=== PATIENT | male | born 1975 | race Caucasian/White ===

== ENCOUNTER 2023-09-08 17:07 | Emergency (ER) | payer OTHER ==
--- NOTE | 2023-09-08 17:10 | ED ---
General Adult HPI - General Source: RN notes reviewed <Griselda Barrios - Last Filed: 09/08/23 17:09> - General Source: patient, RN notes reviewed, old records reviewed <Jt Reid - Last Filed: 09/09/23 00:03> - General Stated complaint: Chest congestion,sob,syncope Time Seen by Provider: 09/08/23 17:09 - History of Present Illness Initial comments: 47-year-old male presents to the emergency department with a chief complaint of cough. Patient also complains of hoarse voice, cough, congestion. Denies known fevers. reports history of pneumonia. (Griselda Barrios) Patient is a 47-year-old male who was originally evaluated as a quick note. Presents complaining of cough, congestion, sore throat. Also is complaining of chronic left shoulder pain as well as right knee pain. 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 Denies any significant past medical history. Symptoms have been ongoing for a few days in terms of upper respiratory illness. Workup was started in triage. He denies any nausea, vomiting, diarrhea, abdominal pain, chest pain. Denies any known sick contacts. He is concerned he may have pneumonia which is why presents. Left shoulder pain is chronic and is worse with movement. No obvious trauma. Patient's right knee pain started yesterday before while at work. Is a safe and vault service mechanic and has pain over the anterior aspect of the right knee but no obvious trauma. Has normal range of motion but pain with movement. Presents for further evaluation at this time. (Jt Reid) - Related Data Home Medications Medication Instructions Recorded Confirmed Famotidine 40 mg PO HS 09/08/23 09/08/23 Pantoprazole [Protonix] 40 mg PO HS 09/08/23 09/08/23 Allergies Allergy/AdvReac Type Severity Reaction Status Date / Time No Known Allergies Allergy Verified 09/08/23 22:15 Review of Systems ROS Other: All systems not noted in ROS Statement are negative. <Griselda Barrios - Last Filed: 09/08/23 17:09> ROS Other: All systems not noted in ROS Statement are negative. <Jt Reid - Last Filed: 09/09/23 00:03> ROS Statement: Those systems with pertinent positive or pertinent negative responses have been documented in the HPI. Review of Systems: CONST: Denies fever EYES: Denies blurry vision ENT: Endorses nasal congestion, sore throat C/V: Denies Chest pain RESP: Denies shortness of breath GI: Denies abdominal pain : Denies dysuria SKIN: Denies rash. MSK: Endorses left shoulder pain, right knee pain NEURO: Denies headache (Jt Reid) Past Medical History Past Medical History: No Reported History History of Any Multi-Drug Resistant Organisms: None Reported Past Surgical History: Hernia Repair, Orthopedic Surgery Past Psychological History: ADD/ADHD, Anxiety, Depression Smoking Status: Former smoker Past Alcohol Use History: Daily Past Drug Use History: Marijuana <Griselda Barrios - Last Filed: 09/08/23 17:09> General Exam <Griselda Barrios - Last Filed: 09/08/23 17:09> <Jt Reid - Last Filed: 09/09/23 00:03> - General Exam Comments Initial Comments: Visual Physical Exam Vital signs reviewed General: Well-appearing, nontoxic, no acute distress. Head: Normocephalic, atraumatic Eyes: PERRLA, EOMI ENT: Airway patent Chest: Nonlabored breathing Skin: No visual rash, normal skin tone Neuro: Alert and oriented 3 Musculoskeletal: No gross abnormalities (Griselda Barrios) General: Appears in no acute distress. HEAD: Normal with no signs of head trauma. EYES: PERRLA, EOMI, conjunctiva normal, no discharge. ENT: Hearing grossly intact. Rhinorrhea. Posterior oropharynx is erythematous. No obvious exudates. No stridor. RESPIRATORY: Clear breath sounds bilaterally. No wheezes, rales, or rhonchi. No hypoxia. No rhonchi. C/V: Regular rate and rhythm. S1 and S2 auscultated, no edema, peripheral pulses 2+ and intact throughout ABD: Abd is soft, nontender, nondistended EXT: Normal range of motion, no obvious deformity. Pain with movement of the left shoulder above 90. No obvious deformities. Suspect rotator cuff involvement or injury. Patient has tetanus palpation over the medial aspect of the right knee. No obvious deformity. Normal range of motion. No laxity appreciated. SKIN: No rashes or lesions observed on exposed skin. NEURO: Alert and oriented 4. (Jt Reid) Course Vital Signs 11/09/08/23 09/08/23 17:32 21:46 21:47 Temperature 99.1 F Pulse Rate 98 69 Respiratory 16 18 18 Rate Blood Pressure 134/84 117/84 O2 Sat by Pulse 97 97 Oximetry 09/08/23 23:18 Temperature 98.4 F Pulse Rate 84 Respiratory 18 Rate Blood Pressure 116/70 O2 Sat by Pulse 98 Oximetry Medical Decision Making <Griselda Barrios - Last Filed: 09/08/23 17:09> - Lab Data Result diagrams: 09/08/23 17:40 09/08/23 17:40 - EKG Data -: EKG Interpreted by Me <Jt Reid - Last Filed: 09/09/23 00:03> - Medical Decision Making I performed the quick note portion of this exam, verbal signature Griselda Barrios PA-C (Griselda Barrios) Was pt. sent in by a medical professional or institution ([facility], [employer] IN[employer]CTION SERVICER, urgent care, hospital, or longterm...) When possible be specific @ -No Did you speak to anyone other than the patient for history (EMS, parent, family, police, friend...)? What history was obtained from this source @ -No Did you review nursing and triage notes (agree or disagree)? Why? @ -I reviewed and agree with nursing and triage notes Were old charts reviewed (outside hosp., previous admission, EMS record, old EKG, old radiological studies, urgent care reports/EKG's, longterm records)? Report findings @ -No old charts were reviewed Differential Diagnosis (chest pain, altered mental status, abdominal pain women, abdominal pain men, vaginal bleeding, weakness, fever, dyspnea, syncope, headache, dizziness, GI bleed, back pain, seizure, CVA, palpatations, mental health, musculoskeletal)? @ -URI, viral syndrome, Covid infection, pneumonia, strep pharyngitis, muscle strain, rotator cuff injury, knee injury EKG interpreted by me (3pts min.). @ -As above X-rays interpreted by me (1pt min.). @ -Rest x-ray reveals no obvious acute cardio pulmonary process. Shoulder x- ray and knee x-ray reveals degenerative changes without any obvious fracture. CT interpreted by me (1pt min.). @ -None done U/S interpreted by me (1pt. min.). @ -None done What testing was considered but not performed or refused? (CT, X-rays, U/S, labs)? Why? @ -None What meds were considered but not given or refused? Why? @ -None Did you discuss the management of the patient with other professionals (professionals i.e. , PA, FUEL INJECTION SERVICER, lab, RT, psych nurse, manager social work, eligibility worker, teacher, safety officer, case hardener)? Give summary @ -No Was smoking cessation discussed for >3mins.? @ -No Was critical care preformed (if so, how long)? @ -No Were there social determinants of health that impacted care today? How? (Homelessness, low income, unemployed, alcoholism, drug addiction, transportation, low edu. Level, literacy, decrease access to med. care, penitentiary, rehab)? @ -No Was there de-escalation of care discussed even if they declined (Discuss DNR or withdrawal of care, Hospice)? DNR status @ -No What co-morbidities impacted this encounter? (DM, HTN, Smoking, COPD, CAD, Cancer, CVA, ARF, Chemo, Hep., AIDS, mental health diagnosis, sleep apnea, morbid obesity)? @ -None Was patient admitted / discharged? Hospital course, mention meds given and route, prescriptions, significant lab abnormalities, going to OR and other pertinent info. @ -Based on the patient's presentation and physical exam, presents primarily for upper respiratory infectious symptoms but is also having Ortiz skeletal pain which is somewhat chronic. X-rays were obtained in triage and were negative for any obvious injury to her left shoulder right knee. Patient's workup for infection was unremarkable and triage with a negative viral swabs. No leukocytosis. Chest x-ray unremarkable. Screening EKG was within acceptable limits. I will add on a strep swab due to the sore throat been the primary complaint. Patient will be sent likely treatment with ibuprofen as well as a IM injection of Decadron. Patient agreement with this plan. Vital signs within acceptable limits. We did discuss the results of his workup thus far and he expressed understanding. Likely suffering from muscle strains or chronic a rthritis pain in left shoulder and right knee. Strep swab returned negative. I discussed with patient. He will use [id number] analgesic medications for pain. He was given a work note for tomorrow. Recommended follow-up with orthopedics if he is continuing to have issues with the shoulder and knee. He was in agreement this plan. Strict return precautions discussed. I instructed the patient to follow up with their PCP in the next 1-3 days I explained that the patient should return to the emergency department if they experience any worsening symptoms. Strict return precautions were discussed with the patient. The patient expressed understanding of these instructions. I answered all questions that the patient had. The patient was discharged home in good condition with their prescriptions and follow up information. Undiagnosed new problem with uncertain prognosis? @ -No Drug Therapy requiring intensive monitoring for toxicity (Heparin, Nitro, Insulin, Cardizem)? @ -No Were any procedures done? @ -No Diagnosis/symptom? @ -Arthritis, muscle strain Acute, or Chronic, or Acute on Chronic? @ -Acute on chronic Uncomplicated (without systemic symptoms) or Complicated (systemic symptoms)? @ -Uncomplicated Side effects of treatment? @ -No Exacerbation, Progression, or Severe Exacerbation? @ -No Poses a threat to life or bodily function? How? (Chest pain, [place], [place], pneumonia, PE, COPD, DKA, ARF, appy, cholecystitis, CVA, Diverticulitis, Homicidal, Suicidal, threat to staff... and all critical care pts) @ -No Diagnosis/symptom? @ -Pharyngitis, viral syndrome Acute, or Chronic, or Acute on Chronic? @ -Acute Uncomplicated (without systemic symptoms) or Complicated (systemic symptoms)? @ -Uncomplicated Side effects of treatment? @ -none Exacerbation, Progression, or Severe Exacerbation] @ -no Poses a threat to life or bodily function? @ -no (Jt Reid) - Lab Data Lab Results 09/08/23 09/08/23 09/08/23 Range/Units 17:40 17:40 17:40 WBC 6.5 (3.8-10.6) k/uL RBC 5.02 (4.30-5.90) m/uL Hgb 15.3 (13.0-17.5) gm/dL Hct 45.0 (39.0-53.0) % MCV 89.7 (80.0-100.0) fL MCH 30.5 (25.0-35.0) pg MCHC 34.1 (31.0-37.0) g/dL RDW 12.6 (11.5-15.5) % Plt Count 179 (150-450) k/uL MPV 8.5 Neutrophils % 62 % Lymphocytes % 26 % Monocytes % 4 % Eosinophils % 6 % Basophils % 1 % Neutrophils # 4.0 (1.3-7.7) k/uL Lymphocytes # 1.7 (1.0-4.8) k/uL Monocytes # 0.2 (0-1.0) k/uL Eosinophils # 0.4 (0-0.7) k/uL Basophils # 0.0 (0-0.2) k/uL Sodium 139 (137-145) mmol/L Potassium 4.3 (3.5-5.1) mmol/L Chloride 103 (98-107) mmol/L Carbon Dioxide 23 (22-30) mmol/L Anion Gap 13 mmol/L BUN 17 (9-20) mg/dL Creatinine 1.00 (0.66-1.25) mg/dL Est GFR (CKD-EPI)AfAm >90 (>60 ml/min/1.73 sqM) Est GFR (CKD-EPI)NonAf 90 (>60 ml/min/1.73 sqM) Glucose 75 (74-99) mg/dL Calcium 9.4 (8.4-10.2) mg/dL Total Bilirubin 0.7 (0.2-1.3) mg/dL AST 56 (17-59) U/L ALT 85 H (4-49) U/L Alkaline Phosphatase 87 (38-126) U/L Total Protein 7.5 (6.3-8.2) g/dL Albumin 4.4 (3.5-5.0) g/dL Influenza Type A (PCR) Not Detected (Not Detectd) Influenza Type B (PCR) Not Detected (Not Detectd) RSV (PCR) Not Detected (Not Detectd) SARS-CoV-2 (PCR) Not Detected (Not Detectd) Group A Strep (PCR) (Not Detectd) 09/08/23 Range/Units 22:03 WBC (3.8-10.6) k/uL RBC (4.30-5.90) m/uL Hgb (13.0-17.5) gm/dL Hct (39.0-53.0) % MCV (80.0-100.0) fL MCH (25.0-35.0) pg MCHC (31.0-37.0) g/dL RDW (11.5-15.5) % Plt Count (150-450) k/uL MPV Neutrophils % % Lymphocytes % % Monocytes % % Eosinophils % % Basophils % % Neutrophils # (1.3-7.7) k/uL Lymphocytes # (1.0-4.8) k/uL Monocytes # (0-1.0) k/uL Eosinophils # (0-0.7) k/uL Basophils # (0-0.2) k/uL Sodium (137-145) mmol/L Potassium (3.5-5.1) mmol/L Chloride (98-107) mmol/L Carbon Dioxide (22-30) mmol/L Anion Gap mmol/L BUN (9-20) mg/dL Creatinine (0.66-1.25) mg/dL Est GFR (CKD-EPI)AfAm (>60 ml/min/1.73 sqM) Est GFR (CKD-EPI)NonAf (>60 ml/min/1.73 sqM) Glucose (74-99) mg/dL Calcium (8.4-10.2) mg/dL Total Bilirubin (0.2-1.3) mg/dL AST (17-59) U/L ALT (4-49) U/L Alkaline Phosphatase (38-126) U/L Total Protein (6.3-8.2) g/dL Albumin (3.5-5.0) g/dL Influenza Type A (PCR) (Not Detectd) Influenza Type B (PCR) (Not Detectd) RSV (PCR) (Not Detectd) SARS-CoV-2 (PCR) (Not Detectd) Group A Strep (PCR) NOT DETECTED (Not Detectd) - EKG Data EKG Comments: 12-lead Electrocardiogram Interpretation Note EKG was reviewed and interpreted by myself. 12-lead ECG performed at 1740 is interpreted by me as revealing normal sinus rhythm at a rate of 80 beats per minute. [place] is normal. VA intervals 124 ms, QRS duration is 102 ms, QTc is 402 ms.. There were no ST or T wave abnormalities to suggest myocardial ischemia or injury. R wave progression across the precordium was satisfactory. By my interpretation this EKG is non-diagnostic for acute ischemia. (Jt Reid) Disposition <Griselda Barrios - Last Filed: 09/08/23 17:09> Is patient prescribed a controlled substance at d/c from ED?: No Time of Disposition: 22:50 <Jt Reid - Last Filed: 09/09/23 00:03> Clinical Impression: Pharyngitis, Arthritis, Muscle strain, Viral syndrome Disposition: HOME SELF-CARE Condition: Good Instructions (If sedation given, give patient instructions): Pharyngitis (ED) Referrals: Karma Conway DO [Primary Care Provider] - 1-2 days Rick Stock DO [Doctor of Osteopathic Medicine] - 1-2 days
--- NOTE | 2023-09-08 18:02 | XR ---
EXAMINATION TYPE: XR chest 2V DATE OF EXAM: 09/08/2023 5:29 PM CLINICAL INDICATION:Male, 47 years old with history of cough; COMPARISON: Chest radiographs from 12/14/2022 TECHNIQUE: XR chest 2V Frontal and lateral views of the chest. FINDINGS: Lungs/Pleura: There is no evidence of pleural effusion, focal consolidation, or pneumothorax. Pulmonary vascularity: Unremarkable. Heart/mediastinum: Cardiomediastinal silhouette is unremarkable. Musculoskeletal: No acute osseous pathology. IMPRESSION: No acute cardiopulmonary disease/process.
[2023-09-08 18:04] LABS: Basophils % (A) 1 %; Eosinophils # (A) 0.4 k/uL (0-0.7); Eosinophils % (A) 6 %; HGB 15.3 gm/dL (13.0-17.5); Lymphocytes # (A) 1.7 k/uL (1.0-4.8); Lymphocytes % (A) 26 %; MCH 30.5 pg (25.0-35.0); MCHC 34.1 g/dL (31.0-37.0); MCV 89.7 fL (80.0-100.0); Mean Platelet Volume 8.5; Monocytes # (A) 0.2 k/uL (0-1.0); Monocytes % (A) 4 %; Neutrophils % (A) 62 %; Platelet Count 179 k/uL (150-450); RBC 5.02 m/uL (4.30-5.90); RDW 12.6 % (11.5-15.5); WBC 6.5 k/uL (3.8-10.6)
--- NOTE | 2023-09-08 18:04 | XR ---
EXAMINATION TYPE: XR knee complete RT DATE OF EXAM: 09/08/2023 5:30 PM CLINICAL INDICATION:Male, 47 years old with history of Pain; [facility] COMPARISON: None. TECHNIQUE: XR knee complete RT; examined in Frontal, lateral and oblique projections. FINDINGS: No evidence of any acute osseous pathology, soft tissue swelling, or joint effusion is no francia. Tricompartmental osteophyte formation involving the femoral condyles, tibial plateau and patella. Mi ld joint space narrowing. IMPRESSION: 1. No acute osseous pathology. 2. Mild tricompartmental osteoarthritic changes.
--- NOTE | 2023-09-08 18:04 | XR ---
EXAMINATION TYPE: XR shoulder complete LT DATE OF EXAM: 09/08/2023 5:30 PM CLINICAL INDICATION:Male, 47 years old with history of pain; [facility] COMPARISON: None TECHNIQUE: XR shoulder complete LT; shoulder was examined in AP, internally rotated and scapular Y p rojections. FINDINGS: No evidence of acute osseous pathology, joint dislocation, or soft tissue swelling. The remaining po rtions of the visualized chest are unremarkable. Mild degeneration changes of acromioclavicular joint with osteophyte formation. IMPRESSION: No acute osseous pathology.
[2023-09-08 18:19] LABS: ALT 85 U/L (4-49); AST 56 U/L (17-59); African American GFR (CKD) >90 (>60 ml/min/1.73 sqM); Albumin 4.4 g/dL (3.5-5.0); Alkaline Phosphatase 87 U/L (38-126); Anion Gap 13 mmol/L; Blood Urea Nitrogen 17 mg/dL (9-20); Calcium 9.4 mg/dL (8.4-10.2); Carbon Dioxide 23 mmol/L (22-30); Chloride 103 mmol/L (98-107); Glucose 75 mg/dL (74-99); Non-African American GFR(CKD) 90 (>60 ml/min/1.73 sqM); Potassium 4.3 mmol/L (3.5-5.1); Sodium 139 mmol/L (137-145); Total Bilirubin 0.7 mg/dL (0.2-1.3); Total Protein 7.5 g/dL (6.3-8.2)
[2023-09-08] MEDS ORDERED: IBUPROFEN 800 MG TAB PO STA (21:59)
[2023-09-08] MEDS ORDERED: DEXAMETHASONE SOD PHOSPHATE 10 MG/ML 1 ML VIAL IM STA (21:59)
[2023-09-08 22:04] VITALS: RESP 18
[2023-09-08 23:39] VITALS: BP 116/70; PULSE 84; TEMP 98.4
== END 2023-09-08 23:22 | disposition home or self-care (01) ==
LOC: EC 17:07
DX: S86.911A Strain of unspecified muscle(s) and tendon(s) at lower leg level, right leg, initial encounter (principal); J02.9 Acute pharyngitis, unspecified; B34.9 Viral infection, unspecified; F12.90 Cannabis use, unspecified, uncomplicated; Z86.59 Personal history of other mental and behavioral disorders; Z20.822 Contact with and (suspected) exposure to COVID-19; Z87.891 Personal history of nicotine dependence; X58.XXXA Exposure to other specified factors, initial encounter
CPT/HCPCS: 99285; 96372; 36415; 93005; 87651; 80053; 85025; 87636; 73030; 73562; 71046; J1100

== ENCOUNTER → 2024-04-05 | Outpatient (CLI) | payer OTHER ==
--- NOTE | 2024-04-06 08:43 | XR ---
EXAMINATION TYPE: XR orbit complete bilateral DATE OF EXAM: 04/05/2024 6:21 PM CLINICAL INDICATION:Male, 48 years old with history of Z18.10 RETAINED METAL FRAGMENTS, UNSPECIFIED; Rule out foreign body. COMPARISON: None TECHNIQUE: XR orbit complete bilateral views the orbits frontal, lateral and [place]. FINDINGS: Radiographic evaluation of the orbits fail to demonstrate evidence of an orbital fracture. There is n o radiopaque foreign body identified. The adjacent paranasal sinuses are well aerated an without evid ence of intra-cavitary fluid accumulation. IMPRESSION: No radiographic evidence of radiopaque foreign body.
== END | disposition home or self-care (01) ==
LOC: RADXRMAIN 17:45
PROVIDERS: ATTEND Family Medicine
DX: Z18.10 Retained metal fragments, unspecified (principal)
CPT/HCPCS: 70200

== ENCOUNTER → 2024-04-06 | Outpatient (CLI) | payer OTHER ==
--- NOTE | 2024-04-06 20:46 | MR ---
EXAMINATION TYPE: MR shoulder LT wo con DATE OF EXAM: 04/06/2024 COMPARISON: None HISTORY: Lt shoulder pain with lack of mobility x1 year TECHNIQUE: Multiplanar, multisequence imaging of the left shoulder is performed without contrast. FINDINGS: Rotator Cuff: Increased signal in the supraspinatus and infraspinatus tendons greatest near the humer al head. Heterogeneous subscapularis tendon. Rotator cuff muscle bulk preserved. Acromioclavicular Joint: Moderate to severe narrowing and capsular hypertrophy. Mild to moderate spur ring. Loss of underlying fat plane. Diminished T1 and increased T2 signal at this level. Glenohumeral Joint: No significant spurring. No significant effusion. Labrum: The labrum appears grossly intact given limitation of non-arthrogram study. Biceps Tendon: The long head of biceps is in normal location within bicipital groove. Bone marrow signal: No focal abnormal marrow signal is appreciated. Other: No additional significant abnormality is appreciated. IMPRESSION: 1. Moderate to severe AC joint arthropathy with underlying impingement suspected. Inflammatory change at this level also needs to be considered. 2. Tendinosis of the rotator cuff tendons as detailed above.
== END | disposition home or self-care (01) ==
LOC: RADMRIMAIN 18:59
PROVIDERS: ATTEND Family Medicine
DX: M25.812 Other specified joint disorders, left shoulder (principal); M19.012 Primary osteoarthritis, left shoulder; M67.814 Other specified disorders of tendon, left shoulder